=== PATIENT | male | born 1980 | race Caucasian/White ===

== ENCOUNTER 2025-02-01 15:00 | Emergency (ER) | payer MEDICAID ==
[~2025-02-01] VITALS: Ht 172.7 cm; Wt 81.6 kg
[2025-02-01 16:31] LABS: *BILIRUBIN,URIN NEGATIVE (NEGATIVE); *BLOOD, URINE NEGATIVE (NEGATIVE); *CLARITY,URINE CLEAR (CLEAR); *COLOR,URINE YELLOW (YELLOW); *KETONES,URINE NEGATIVE (NEGATIVE); *PROTEIN,URINE NEGATIVE (NEGATIVE); LEUKOCYTE ESTERASE ,URINE NEGATIVE (NEGATIVE); NITRITE, URINE NEGATIVE (NEGATIVE); PH,URINE 6.5 (5.0-8.0); UGLUCOSE NEGATIVE (NEGATIVE)
[2025-02-01] MEDS: IV NORMAL SALINE 1000 ML BAG IV ONE (16:31)
[2025-02-01 16:32] LABS: BASOPHILS # (AUTO) 0.1 K/UL (0.0-0.2); BASOPHILS % (AUTO) 0.4 % (0.0-2.0); EOSINOPHILS # (AUTO) 0.2 K/uL (0.0-0.7); EOSINOPHILS % (AUTO) 0.9 % (0.0-7.0); HEMATOCRIT 41.9 % (36.7-47.1); HEMOGLOBIN 14.3 g/dL (12.5-16.3); LYMPHOCYTES # (AUTO) 2.4 K/uL (0.8-4.8); LYMPHOCYTES % (AUTO) 11.2 % (20.5-51.5); MEAN CORPUSCULAR HEMOGLOBIN 31.1 uug (23.8-33.4); MEAN CORPUSCULAR HGB CONC 34 g/dL (32.5-36.3); MEAN CORPUSCULAR VOLUME 91.6 fL (73.0-96.2); MONOCYTES % (AUTO) 9.6 % (0.0-11.0); NEUTROPHILS # (AUTO) 16.4 K/uL (1.8-8.9); NEUTROPHILS % (AUTO) 77.9 % (38.5-71.5); PLATELET COUNT (AUTO) 218 K/uL (152-348); RED BLOOD CELL COUNT(AUTO) 4.58 MIL/uL (4.06-5.63); WHITE BLOOD COUNT (AUTO) 21.1 K/uL (3.6-10.2)
[2025-02-01 16:34] LABS: DIFFERENTIAL COMMENT 1
[2025-02-01] MEDS ORDERED: CEFAZOLIN 1 G VIAL ONE (16:36)
[2025-02-01 16:37] LABS: CALCIUM 8.1 mg/dL (8.5-10.1); CREATININE 0.8 mg/dL (0.6-1.3); POTASSIUM 3.6 mmol/L (3.5-5.1)
[2025-02-01 16:43] LABS: ALBUMIN 2.9 g/dL (3.4-5.0); BILIRUBIN,DIRECT 0.2 mg/dL (0.0-0.2); BILIRUBIN,TOTAL 0.7 mg/dL (0.2-1.0); TOTAL PROTEIN, SERUM 7.1 g/dL (6.4-8.2)
[2025-02-01] MEDS: CEFAZOLIN 1 G in IV DEXTROSE 5% 50 ML IV ONE (16:44)
[2025-02-01 16:48] LABS: BACTERIA,URINE NONE SEEN /HPF (NONE SEEN); RBC,URINE NONE SEEN /HPF (0-3); SQUAMOUS EPITHELIAL CELL,UR NONE SEEN /HPF (NONE SEEN); WBC,URINE 0-3 /HPF (0-3)
[2025-02-01] MEDS ORDERED: CHOLECALCIFEROL 1,000 UNIT TABLET ONE (18:01)
[2025-02-01] MEDS: CHOLECALCIFEROL 1,000 UNIT TABLET PO SCH (18:01)
[2025-02-01 18:14] VITALS: O2SAT 98
== END 2025-02-01 18:34 | disposition short-term general hospital (02) ==
LOC: ER 15:00
DX: S50.312A Abrasion of left elbow, initial encounter (principal); L03.114 Cellulitis of left upper limb; E83.51 Hypocalcemia; E87.1 Hypo-osmolality and hyponatremia; R74.01 Elevation of levels of liver transaminase levels; F17.210 Nicotine dependence, cigarettes, uncomplicated; M79.602 Pain in left arm; R50.9 Fever, unspecified; W23.1XXA Caught, crushed, jammed, or pinched between stationary objects, initial encounter; Y93.89 Activity, other specified; Y92.89 Other specified places as the place of occurrence of the external cause; Y99.8 Other external cause status
CPT/HCPCS: 99285; 96365; 80076; 80048; 81001; 85025; 84145; 85730; 87040 ×2; 87086; 36415; 93005; 83605; J0690; J7040; A4606; A4663